=== PATIENT | male | born 1960 | race Caucasian/White ===

== ENCOUNTER 2017-10-26 12:28 | Emergency (ER) | payer OTHER ==
[~2017-10-26] VITALS: Ht 162.6 cm; Wt 72.6 kg
[2017-10-26 12:40] VITALS: BP 157/76
== END 2017-10-26 13:57 | disposition home or self-care (01) ==
LOC: MED 12:28
DX: H66.91 Otitis media, unspecified, right ear (principal); E11.40 Type 2 diabetes mellitus with diabetic neuropathy, unspecified
CPT/HCPCS: 99283

== ENCOUNTER 2020-09-23 21:22 | Emergency (ER) | payer OTHER ==
[~2020-09-23] VITALS: Ht 162.6 cm; Wt 68.0 kg
[2020-09-23 21:25] VITALS: BP 150/75
--- NOTE | 2020-09-23 21:25 | NUR ---
TO BED AMBULATORY
--- NOTE | 2020-09-23 21:45 | NUR ---
Dr. Watt examining patient.
--- NOTE | 2020-09-23 21:45 | NUR ---
SEE COMPLETE ASSESSMENT FOR FURTHER DETAILS.
--- NOTE | 2020-09-23 21:50 | NUR ---
ERMD AT BEDSIDE PERFORMING ULTRASOUND ON PATIENT BLADDER. PATINET NOTED WITH FULL BLADDER. NEW ORDER OF FC PLACEMENT GIVEN.
--- NOTE | 2020-09-23 22:20 | NUR ---
# 14 FR Sanchez COUDE catheter with 10 ml utilizing sterile technique. Immediate return of 700 ml YELLOW urine noted. Bedside drainage bag placed below level of bladder. Urine sample collected and sent to lab. Pt tolerated procedure WELL.
[2020-09-23 22:31] LABS: APPEARANCE,URINE CLEAR (CLEAR); BILIRUBIN,URINE NEGATIVE (NEGATIVE); BLOOD, URINE 1+ (NEGATIVE); COLOR,URINE YELLOW (YELLOW); LEUKOCYTE ESTERASE ,URINE NEGATIVE (NEGATIVE); NITRITE, URINE NEGATIVE (NEGATIVE); PH,URINE 5.5 (5.0-9.0); UGLUCOSE 3+ (NEGATIVE)
[2020-09-23 22:42] LABS: RBC,URINE 0-5 /HPF (0-5)
[2020-09-23 22:43] LABS: WBC,URINE 0-5 /HPF (0-5)
[2020-09-23 23:05] VITALS: BP 145/88
--- NOTE | 2020-09-23 23:05 | NUR ---
Patient discharged with v/s stable. Written and verbal after care instructions given and explained. Patient verbalized understanding. Ambulatory with steady gait. All questions addressed prior to discharge. Advised to follow up with PMD.
== END 2020-09-23 23:05 | disposition home or self-care (01) ==
LOC: MED 21:22
DX: R33.9 Retention of urine, unspecified (principal); E11.9 Type 2 diabetes mellitus without complications
CPT/HCPCS: 51702; 81001; 87086; 99284